=== PATIENT | male | born 1945 | race Caucasian/White ===

== ENCOUNTER 2017-06-04 09:30 | Emergency (ER) | payer MEDICARE ==
[~2017-06-04] VITALS: Ht 170.2 cm; Wt 70.0 kg
[2017-06-04 09:47] VITALS: BP 147/76; PULSE 61; RESP 18; TEMP 97.6
[2017-06-04] MEDS ORDERED: ESCI10TA PO (09:47)
[2017-06-04] MEDS ORDERED: ASPI325T PO (09:47)
[2017-06-04] MEDS ORDERED: HYDR-3516 PO (09:47)
[2017-06-04] MEDS ORDERED: NICO14DI T-DERMAL (09:47)
[2017-06-04] MEDS ORDERED: TEMA7.5C PO (09:47)
[2017-06-04] MEDS ORDERED: TYLE325T PO (09:47)
[2017-06-04] MEDS ORDERED: DULC10SU3 RECTAL (09:47)
[2017-06-04] MEDS ORDERED: AMLO5TAB2 PO (09:47)
[2017-06-04] MEDS ORDERED: ATOR1TAB18 PO (09:47)
--- NOTE | 2017-06-04 09:55 | PD ---
HPI . Forehead laceration Chief Complaint: Fall Time Seen by Provider: 09:47 Travel History International Travel<30 days: No Contact w/Intl Traveler<30days: No History of Present Illness HPI This patient was [facility] us [facility] a local [facility] for evaluation of injury sustained in a fall. [facility] for [facility] from a recent stroke. He has mainly left leg weakness. He was trying to get up out of the bed and fell and struck the left side of his forehead. He also states that he struck his right shoulder. He states that his right shoulder doesn't hurt. He denies loss of consciousness. He states that his last tetanus shot was in February of this year. Location of the injury his left forehead. The modifying factor for the fall is left lower extremity weakness secondary to recent stroke. Severity of his symptoms are very mild. Onset of the fall was this morning. PFSH Social History Tobacco Use: Yes Allergies-Medications (Allergen,Severity, Reaction): Coded Allergies: No Known Allergies (Unverified , 06/04/17) Reported Meds & Prescriptions Reported Meds & Active Scripts Active Reported Amoxicillin 500 Mg Cap 500 Mg PO TID Nicotine Patch (Nicotine) 14 Mg/24 Hr Patch 14 Mg T-DERMAL DAILY Temazepam 7.5 Mg Cap 7.5 Mg PO HS PRN Hydrocodone-Acetaminophen 5-325 mg Tab 1 Tab PO Q6H PRN Escitalopram (Escitalopram Oxalate) 10 Mg Tab 10 Mg PO DAILY Atorvastatin (Atorvastatin Calcium) 80 Mg Tab 80 Mg PO HS Aspirin 325 Mg Tab 325 Mg PO DAILY Amlodipine (Amlodipine Besylate) 5 Mg Tab 5 Mg PO DAILY Tylenol (Acetaminophen) 325 Mg Tab 650 Mg PO Q4H PRN Dulcolax Supp (Bisacodyl) 10 Mg Supp 10 Mg RECTAL DAILY PRN Review of Systems Except as stated in HPI: all other systems reviewed are Neg Musculoskeletal: Positive: Arthralgias Skin: Positive Other (forehead laceration) Physical Exam Narrative GENERAL: Patient is awake and alert and fully oriented. He is able to give his own history. SKIN: He has a 2 cm laceration on the left side of the forehead. His skin is warm and dry with good color. He has some very mild erythema in the sacral area. He has a dry skin rash on the right lateral buttock. HEAD: Normocephalic. EYES: Pupils are equal. Extraocular movements are intact. NECK: Nontender. Full range of motion of the neck without pain. RESPIRATORY: Nonlabored respirations. MUSCULOSKELETAL: Atraumatic. He has no tenderness to palpation of the right shoulder. He has full range of motion of the right shoulder with pain. NEUROLOGICAL: Awake and alert and oriented 3. He has good motor strength in all extremities with the exception of the left lower extremity. He cannot lift the left leg against gravity. PSYCHIATRIC: Appropriate mood and affect. Data Data Last Documented VS Vital Signs Date Time Temp Pulse Resp B/P (MAP) Pulse Ox O2 Delivery O2 Flow Rate FiO2 06/04/17 09:50 62 18 96 Room Air 06/04/17 09:47 97.6 147/76 (99) Orders Orders Ct Brain W/O Iv Contrast(Rout) (06/04/17 09:47) MDM Medical Decision Making Medical Screen Exam Complete: Yes Emergency Medical Condition: Yes Medical Record Reviewed: Yes (I have reviewed his [facility] records. He suffered a stroke on 05/23/17. He has a medical history of hypertension and hyperlipidemia. He also has a history of depression and chronic pain. He uses nicotine.) Differential Diagnosis My differential diagnosis of head trauma includes but is not limited to scalp contusion, concussion, intracerebral hemorrhage. Narrative Course This patient presents to us following a blow to his head following a fall at the [facility]. He is not on any anticoagulants. He does not have any signs or symptoms suggestive of a head injury. As no neck pain or tenderness. The forehead laceration will be repaired with Dermabond. Last Impressions Head CT 06/04/17 0919 Signed Impressions: Service Date/Time: Sunday, June 04, 2017 09:56 - CONCLUSION: No acute abnormality is seen. There is postoperative change from prior right craniotomy and placement of an aneurysm clip. 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 Sundeep Munoz MD Procedures Procedure Narrative LACERATION LOCATION: Left forehead LENGTH: 2 cm REPAIR: The area of the laceration was prepped with sterile saline. The wound was cleaned with saline. The wound was closed using Dermabond. This was a single layer repair. Patient tolerated the procedure well. Diagnosis Primary Impression: Forehead laceration Qualified Codes: S01.81XA - Laceration without foreign body of other part of head, initial encounter Patient Instructions: General Instructions, Laceration (DC) Disposition: 01 DISCHARGE HOME Condition: Stable Christie Pyle MD Jun 04, 2017 09:55
--- NOTE | 2017-06-04 09:55 | PD ---
HPI . Forehead laceration Chief Complaint: Fall Time Seen by Provider: 09:47 Travel History International Travel<30 days: No Contact w/Intl Traveler<30days: No History of Present Illness HPI This patient was sent to us from a local care home for evaluation of injury sustained in a fall. He is at the care home for rehabilitation from a recent stroke. He has mainly left leg weakness. He was trying to get up out of the bed and fell and struck the left side of his forehead. He also states that he struck his right shoulder. He states that his right shoulder doesn't hurt. He denies loss of consciousness. He states that his last tetanus shot was in February of this year. Location of the injury his left forehead. The modifying factor for the fall is left lower extremity weakness secondary to recent stroke. Severity of his symptoms are very mild. Onset of the fall was this morning. PFSH Social History Tobacco Use: Yes Allergies-Medications (Allergen,Severity, Reaction): Coded Allergies: No Known Allergies (Unverified , 06/04/17) Reported Meds & Prescriptions Reported Meds & Active Scripts Active Reported Amoxicillin 500 Mg Cap 500 Mg PO TID Nicotine Patch (Nicotine) 14 Mg/24 Hr Patch 14 Mg T-DERMAL DAILY Temazepam 7.5 Mg Cap 7.5 Mg PO HS PRN Hydrocodone-Acetaminophen 5-325 mg Tab 1 Tab PO Q6H PRN Escitalopram (Escitalopram Oxalate) 10 Mg Tab 10 Mg PO DAILY Atorvastatin (Atorvastatin Calcium) 80 Mg Tab 80 Mg PO HS Aspirin 325 Mg Tab 325 Mg PO DAILY Amlodipine (Amlodipine Besylate) 5 Mg Tab 5 Mg PO DAILY Tylenol (Acetaminophen) 325 Mg Tab 650 Mg PO Q4H PRN Dulcolax Supp (Bisacodyl) 10 Mg Supp 10 Mg RECTAL DAILY PRN Review of Systems Except as stated in HPI: all other systems reviewed are Neg Musculoskeletal: Positive: Arthralgias Skin: Positive Other (forehead laceration) Physical Exam Narrative GENERAL: Patient is awake and alert and fully oriented. He is able to give his own history. SKIN: He has a 2 cm laceration on the left side of the forehead. His skin is warm and dry with good color. He has some very mild erythema in the sacral area. He has a dry skin rash on the right lateral buttock. HEAD: Normocephalic. EYES: Pupils are equal. Extraocular movements are intact. NECK: Nontender. Full range of motion of the neck without pain. RESPIRATORY: Nonlabored respirations. MUSCULOSKELETAL: Atraumatic. He has no tenderness to palpation of the right shoulder. He has full range of motion of the right shoulder with pain. NEUROLOGICAL: Awake and alert and oriented 3. He has good motor strength in all extremities with the exception of the left lower extremity. He cannot lift the left leg against gravity. PSYCHIATRIC: Appropriate mood and affect. Data Data Last Documented VS Vital Signs Date Time Temp Pulse Resp B/P (MAP) Pulse Ox O2 Delivery O2 Flow Rate FiO2 06/04/17 09:50 62 18 96 Room Air 06/04/17 09:47 97.6 147/76 (99) Orders Orders Ct Brain W/O Iv Contrast(Rout) (06/04/17 09:47) MDM Medical Decision Making Medical Screen Exam Complete: Yes Emergency Medical Condition: Yes Medical Record Reviewed: Yes (I have reviewed his care home records. He suffered a stroke on 05/23/17. He has a medical history of hypertension and hyperlipidemia. He also has a history of depression and chronic pain. He uses nicotine.) Differential Diagnosis My differential diagnosis of head trauma includes but is not limited to scalp contusion, concussion, intracerebral hemorrhage. Narrative Course This patient presents to us following a blow to his head following a fall at the care home. He is not on any anticoagulants. He does not have any signs or symptoms suggestive of a head injury. As no neck pain or tenderness. The forehead laceration will be repaired with Dermabond. Last Impressions Head CT 06/04/17 0923 Signed Impressions: Service Date/Time: Sunday, June 04, 2017 09:56 - CONCLUSION: No acute abnormality is seen. There is postoperative change from prior right craniotomy and placement of an aneurysm clip. 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 Sundeep Munoz MD Procedures Procedure Narrative LACERATION LOCATION: Left forehead LENGTH: 2 cm REPAIR: The area of the laceration was prepped with sterile saline. The wound was cleaned with saline. The wound was closed using Dermabond. This was a single layer repair. Patient tolerated the procedure well. Diagnosis Primary Impression: Forehead laceration Qualified Codes: S01.81XA - Laceration without foreign body of other part of head, initial encounter Patient Instructions: General Instructions, Laceration (DC) Disposition: 01 DISCHARGE HOME Condition: Stable Christie Pyle MD Jun 04, 2017 09:55
--- NOTE | 2017-06-04 09:55 | PD ---
HPI . Forehead laceration Chief Complaint: Fall Time Seen by Provider: 09:47 Travel History International Travel<30 days: No Contact w/Intl Traveler<30days: No History of Present Illness HPI This patient was sent to us from a local long-term for evaluation of injury sustained in a fall. He is at the long-term for rehabilitation from a recent stroke. He has mainly left leg weakness. He was trying to get up out of the bed and fell and struck the left side of his forehead. He also states that he struck his right shoulder. He states that his right shoulder doesn't hurt. He denies loss of consciousness. He states that his last tetanus shot was in February of this year. Location of the injury his left forehead. The modifying factor for the fall is left lower extremity weakness secondary to recent stroke. Severity of his symptoms are very mild. Onset of the fall was this morning. PFSH Social History Tobacco Use: Yes Allergies-Medications (Allergen,Severity, Reaction): Coded Allergies: No Known Allergies (Unverified , 06/04/17) Reported Meds & Prescriptions Reported Meds & Active Scripts Active Reported Amoxicillin 500 Mg Cap 500 Mg PO TID Nicotine Patch (Nicotine) 14 Mg/24 Hr Patch 14 Mg T-DERMAL DAILY Temazepam 7.5 Mg Cap 7.5 Mg PO HS PRN Hydrocodone-Acetaminophen 5-325 mg Tab 1 Tab PO Q6H PRN Escitalopram (Escitalopram Oxalate) 10 Mg Tab 10 Mg PO DAILY Atorvastatin (Atorvastatin Calcium) 80 Mg Tab 80 Mg PO HS Aspirin 325 Mg Tab 325 Mg PO DAILY Amlodipine (Amlodipine Besylate) 5 Mg Tab 5 Mg PO DAILY Tylenol (Acetaminophen) 325 Mg Tab 650 Mg PO Q4H PRN Dulcolax Supp (Bisacodyl) 10 Mg Supp 10 Mg RECTAL DAILY PRN Review of Systems Except as stated in HPI: all other systems reviewed are Neg Musculoskeletal: Positive: Arthralgias Skin: Positive Other (forehead laceration) Physical Exam Narrative GENERAL: Patient is awake and alert and fully oriented. He is able to give his own history. SKIN: He has a 2 cm laceration on the left side of the forehead. His skin is warm and dry with good color. He has some very mild erythema in the sacral area. He has a dry skin rash on the right lateral buttock. HEAD: Normocephalic. EYES: Pupils are equal. Extraocular movements are intact. NECK: Nontender. Full range of motion of the neck without pain. RESPIRATORY: Nonlabored respirations. MUSCULOSKELETAL: Atraumatic. He has no tenderness to palpation of the right shoulder. He has full range of motion of the right shoulder with pain. NEUROLOGICAL: Awake and alert and oriented 3. He has good motor strength in all extremities with the exception of the left lower extremity. He cannot lift the left leg against gravity. PSYCHIATRIC: Appropriate mood and affect. Data Data Last Documented VS Vital Signs Date Time Temp Pulse Resp B/P (MAP) Pulse Ox O2 Delivery O2 Flow Rate FiO2 06/04/17 09:50 62 18 96 Room Air 06/04/17 09:47 97.6 147/76 (99) Orders Orders Ct Brain W/O Iv Contrast(Rout) (06/04/17 09:47) MDM Medical Decision Making Medical Screen Exam Complete: Yes Emergency Medical Condition: Yes Medical Record Reviewed: Yes (I have reviewed his long-term records. He suffered a stroke on 05/23/17. He has a medical history of hypertension and hyperlipidemia. He also has a history of depression and chronic pain. He uses nicotine.) Differential Diagnosis My differential diagnosis of head trauma includes but is not limited to scalp contusion, concussion, intracerebral hemorrhage. Narrative Course This patient presents to us following a blow to his head following a fall at the long-term. He is not on any anticoagulants. He does not have any signs or symptoms suggestive of a head injury. As no neck pain or tenderness. The forehead laceration will be repaired with Dermabond. Last Impressions Head CT 06/04/17 0930 Signed Impressions: Service Date/Time: Sunday, June 04, 2017 09:56 - CONCLUSION: No acute abnormality is seen. There is postoperative change from prior right craniotomy and placement of an aneurysm clip. 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 Sundeep Munoz MD Procedures Procedure Narrative LACERATION LOCATION: Left forehead LENGTH: 2 cm REPAIR: The area of the laceration was prepped with sterile saline. The wound was cleaned with saline. The wound was closed using Dermabond. This was a single layer repair. Patient tolerated the procedure well. Diagnosis Primary Impression: Forehead laceration Qualified Codes: S01.81XA - Laceration without foreign body of other part of head, initial encounter Patient Instructions: General Instructions, Laceration (DC) Disposition: 01 DISCHARGE HOME Condition: Stable Christie Pyle MD Jun 04, 2017 09:55
[2017-06-04] MEDS ORDERED: AMOX500C PO (10:03)
--- NOTE | 2017-06-04 10:11 | RADRPT ---
EXAM DATE/TIME: 06/04/2017 09:56 [facility] COMPARISON: No previous studies available for comparison. INDICATIONS : Trauma; left head laceration. RADIATION DOSE: 56.35 CTDIvol (mGy) MEDICAL HISTORY : Hypertension. SURGICAL HISTORY : Craniotomy. ENCOUNTER: Initial ACUITY: 1 day PAIN SCALE: 5/10 LOCATION: Left cranial TECHNIQUE: Multiple contiguous axial images were obtained of the head. Using automated exposure control and adj ustment of the mA and/or kV according to patient size, radiation dose was kept as low as reasonably a chievable to obtain optimal diagnostic quality images. DICOM format image data is available electro nically for review and comparison. FINDINGS: CEREBRUM: The patient is status post right craniotomy. There is an aneurysm clip at the right sylvian fissure r egion. There are areas of encephalomalacia in the anterior right temporal lobe extending into the ext ernal capsule and into the periventricular white matter. There is also an area of encephalomalacia at the right parietal lobe. The ventricles are normal for age. No evidence of midline shift, mass lesi on, hemorrhage or acute infarction. No extra-axial fluid collections are seen. POSTERIOR FOSSA: The cerebellum and brainstem are intact. The 4th ventricle is midline. The cerebellopontine angle i s unremarkable. EXTRACRANIAL: The visualized portion of the orbits is intact. SKULL: The calvaria is intact. No evidence of skull fracture. CONCLUSION: No acute abnormality is seen. There is postoperative change from prior right craniotomy and placement of an aneurysm clip. 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 Sundeep Munoz MD on June 04, 2017 at 10:07 Board Certified Radiologist. This report was verified electronically.
[2017-06-04] MEDS ORDERED: TYLETAB34 PO (11:30)
[2017-06-04] MEDS ORDERED: DIAZ5 PO (11:30)
[2017-06-04] MEDS ORDERED: ACETAMINOPHEN/CODEINE 300 MG/30 MG TAB PO ONE (11:45)
[2017-06-04] MEDS ORDERED: DIAZEPAM 5 MG TAB PO ONE (11:45)
== END 2017-06-04 13:31 | disposition home or self-care (01) ==
LOC: NEPE 09:30
DX: S01.81XA Laceration without foreign body of other part of head, initial encounter (principal); I10 Essential (primary) hypertension; E78.5 Hyperlipidemia, unspecified; F32.9 Major depressive disorder, single episode, unspecified; Z72.0 Tobacco use; Z86.73 Personal history of transient ischemic attack (TIA), and cerebral infarction without residual deficits; Z79.82 Long term (current) use of aspirin
CPT/HCPCS: 12011; 70450